=== PATIENT | female | born 1945 | race Caucasian/White ===

== ENCOUNTER 2016-12-01 11:16 | Emergency (ER) | payer MEDICARE ==
[~2016-12-01] VITALS: Ht 154.9 cm; Wt 78.0 kg
[~2016-12-01 11:16] MED LIST: ACCUNEB SOL3 ML/NE1 IN; ACCUNEB SOL3 ML/NEB INH; ADULT LOW DOSE81 MG PO; COREG12.5 M1 PO; COREG12.5 MG PO; EFFIENT10 M2 PO; LANTUS INS100 UNITS/ SC; LASIX 40MG. TAB40 MG PO; LASIX20 MG PO; LISINOPRIL 20MG20 MG PO; METFORMIN HCL1000 MG PO; METFORMIN1000 MG PO; METOLAZONE 2.52.5 MG PO; NICOTINE21 MG/24 H TD; NOVOLIN 70/30 710 ML SC; OMEPRAZOLE20 MG PO; PERCOCET 500 MG1 TAB PO; PLAVIX 75MG TAB75 MG PO; POTASSIUM CHLO20 ME2 PO; PRILOSEC20 M1 PO; PROAIR HFA0.09 MG/AC IH; VALACYCLOVIR HCL1 G1 PO; ZITHROMAX Z-PA250 M2 PO
[2016-12-01 11:43] LABS: HEMOGLOBIN 11.6 g/dL (12.2-16.2); LYMPH # 1.3 K/mm3 (0.7-4.5); LYMPH % 11.1 % (10-50.0)
--- NOTE | 2016-12-01 11:46 | Emergency Room Report ---
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 N Clinical Suspician of Infection? N Mental Status: 1 - Regular (Normal Baseline) Sepsis Risk:Low Sepsis Risk Have you (or family members/close friends) recently traveled outside the [place]? N If Yes, where/when: Have you had exposure to infectious disease within the past month? TB? Other? Specify: Surgery 1 years old white female with history of coronary artery disease hypertension and diabetes who ran out of medicine a week ago. He has been experiencing shortness over a year since 4:00 AM associated with chest pressure and cough. She describes her chest pain as sharp and worse with deep breath this and the cough is productive of white material. He denies having palpitations nausea vomiting. She was found to have elevated blood pressure in the ER. Source patient, RN notes reviewed, family Exam Limitations no limitations ALLERGIES Coded Allergies: Penicillins (Intermediate, WHIVES 12/01/16) Home Medications Active Scripts LISINOPRIL (Lisinopril) 20 MG PO DAILY #30 TAB Prov: 12/13/14 Carvedilol (Coreg) 12.5 MG PO BID #60 TAB Prov: 12/13/14 VALACYCLOVIR HCL (Valacyclovir) 1 GM PO Q8 #21 TAB Prov: 05/21/16 Carvedilol (Coreg) 12.5 MG PO BID #28 TAB Prov: 04/16/16 Furosemide (Lasix 40MG) 40 MG PO DAILY #14 TAB Prov: 04/16/16 ALBUTEROL SULFATE (Accuneb) 1.25 MG INH Q6HP PRN soa #30 NEB Prov: 04/16/16 CLOPIDOGREL BISULFATE (PLAVIX) 75 MG PO DAILY #14 TABLET Prov: 04/16/16 Reported Medications Metolazone (Metolazone 2.5MG) 5 MG PO MoTh INSULIN NPH HUM/REG INSULIN HM (Novolin 70-30 100 Unit/Ml Vial) 50 UNITS SC BIDD POTASSIUM CHL (Potassium Chloride) 20 MEQ PO BID OMEPRAZOLE MAGNESIUM (Prilosec 20MG) 20 MG PO DAILY Albuterol Sulfate (Proair Hfa) 1 PUFF IH Q6HP PRN SOA METFORMIN HCL (Metformin 1000MG) 1,000 MG PO BID #60 Prasugrel HCl (Effient) 10 MG PO DAILY History Medical History General CAD? No Angina: Yes VA: No Hypertension? Yes Hyperlipidemia? Yes CHF? Yes DVT? No PE? No COPD? Yes Asthma? Yes Anemia? No GERD? No Gastric ulcers? No GI Bleed? No Hernia? Yes Thyroid Problems? No Hypothyroidism? No CVA? No Seizures? No Diabetes? Yes Insulin Dependent: Yes Insulin Pump: No Home FSBS? Yes Renal Insuffiency? No End Stage Renal Disease? No UTI? No Stones? No BPH? No GB Disease: Yes Nephritic Syndrome? No Asplenia? No Hepatitis? No Sickle Cell Disease? No Arthritis? Yes Migraines? Yes Cataracts? Yes Glaucoma? No MRSA? No HIV? No TB? No Anxiety? No Depression? 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 No Immunization Hx Ped.Immunizations UTD Yes DT/Tetanus NOT SURE Flu 12/13/14 Pneumonia 12/12/2014 Surgical Hx Previous Surgery?Y CHOLECYSTECTOMY HYSTERECTOMY CARDIAC STENTS Family History Family Hx Diabetes Yes CAD No Hypertension Yes Hyperlipidemia Yes Cancer Yes TB No Social History Smoking Hx Smoker: Former Smoker Tobacco: No Type Cigarettes Packs/day < 1 Pack Alcohol Alcohol: No Review of Systems All Other Systems Reviewed and Negative Constitutional no symptoms reported Eyes no symptoms reported ENT no symptoms reported. Respiratory see HPI, cough, shortness of breath Cardiovascular see HPI, chest pain Gastrointestinal no symptoms reported Genitourinary no symptoms reported. Musculoskeletal no symptoms reported Skin no symptoms reported Psychiatric/Neurological no symptoms reported Physical Exam Vital Signs Vital Signs Date Time Temp Pulse Resp B/P Pulse O2 O2 Flow FiO2 Ox Delivery Rate 12/01 1339 85 18 146/78 99 12/01 1120 87 18 94 - WBC >12,000 or <4,000 or 10% bands? 2 or more SIRS Criteria Met? B/P: MAP: Creatinine >2.0? UA output<0.5ml/kg/hr for 2 hrs? Platelet count >100,000? Lactate >2.0mmol/1? INR >1.2 or PTT > than 60 sec? Evidence of Organ Dysfunction? Provider documented clinical suspician of infection? N Sepsis Criteria Count: 0 Sepsis Risk: Low Sepsis Risk General Appearance normal appearance, WD/WN Eye Exam - bilateral eye normal exam, bilateral eye PERRL, bilateral eye EOMI Ear, Nose, Throat hearing grossly normal, normal ENT inspection Neck normal inspection, non-tender, supple, full range of motion Respiratory Status Yes: trachea midline, chest symmetrical, non tender chest. No: respiratory distress. Lung Sounds bilateral: decreased breath sounds (mildly diminished breath sound). 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 No Results/Orders Laboratory Tests 12/01/16 1305: Troponin I 0.03 12/01/16 1133: Lactic Acid 2.7 H 12/01/16 1130: Sodium 137, Potassium 3.3 L, Chloride 98, Carbon Dioxide 35 H, BUN 19 H, Creatinine 1.2 H, Estimated Creat Clear 51, Estimated GFR (MDRD) 44 L, Glucose 251 H, Calcium 8.2 L, Total Bilirubin 0.5, AST 11 L, ALT 12, Alkaline Phosphatase 150 H, Creatine Kinase 102, CK-MB (CK-2) Rel Index 0.5, CK and CKMB Interp < 0.5, Troponin I 0.03, B-Natriuretic Peptide 157 H, Total Protein 7.4, Albumin 3.1 L, Globulin 4.3 H, Albumin/Globulin Ratio 0.7 L, WBC 11.3 H, RBC 4.94, Hgb 11.6 L, Hct 39.0, MCV 79.0 L, RDW 15.4, Plt Count 606 H, MPV 7.8, Gran % 81.4 H, Gran # 9.2 H, Lymphocytes % 11.1, Monocytes % 4.9, Eosinophils % 2.0, Basophils % 0.6, Lymphocytes # 1.3, Monocytes # 0.6, Eosinophils # 0.2, Basophils # 0.1, PUBS MCHC 29.7 L, MCH 23.4 L Current Medication Orders Sig/Ida Start time Last Medication Dose Route Stop Time Status Admin Albuterol/Ipratropium 0 .STK-MED ONE 12/01 1242 DC INH Levofloxacin/Dextrose 150 ML .STK-MED ONE 12/01 1231 DC IV Sodium Chloride 500 ML .STK-MED ONE 12/01 1231 DC IV Levofloxacin/Dextrose 150 ML ONCE ONE 12/01 1230 CKDr 12/01 IV 12/01 1359 1234 Potassium Chloride 20 MEQ ONCE ONE 12/01 1230 DC PO 12/01 1231 Sodium Chloride 500 ML .Q1H 12/01 1230 AC 12/01 IV 1234 Sodium Chloride 10 ML PRN PRN 12/01 1230 AC IV 12/02 1225 Albuterol/Ipratropium 3 ML ONCE ONE 12/01 1215 DC 12/01 INH 12/01 1216 1244 Sodium Chloride 10 ML PRN PRN 12/01 1130 AC IV 12/02 1127 Lisinopril 20 MG DAILY-DM 12/01 1129 AC 12/01 PO 1136 Carvedilol 25 MG BID 12/01 1128 AC 12/01 PO 1135 Orders Procedure Date/time Status TROPONIN I 12/01 1300 Complete URINALYSIS/COMPLETE 12/01 1226 Active LACTIC ACID FOLLOW UP 12/01 1215 Active RT REQUEST DUONEB 12/01 1202 Active CULTURE, SPUTUM 12/01 1202 Active CULTURE, BLOOD 12/01 1159 Active LACTIC ACID 12/01 1159 Complete ELECTROCARDIOGRAM REQUEST 12/01 1130 Active CHEST(2 VIEWS-NOT PORTABLE) 12/01 1130 Active IV SALINE LOCK 12/01 1130 Active CBC WITH AUTO DIFF 12/01 1130 Complete CARDIAC ENZYMES 12/01 1130 Complete CHEM 12 PROFILE 12/01 1130 Complete BRAIN NATRIURETIC PEPTIDE 12/01 1130 Complete CM/EKG CM/EKG Comments Normal sinus rhythm 89/m with progression and no acute finding Departure Departure Time of Disposition 1302 Disposition DC Home or Self Care(routine) Clinical Impression Primary Impression: Hypertension Secondary Impressions: Bronchitis, Diabetes, Non compliance with medical treatment Condition STABLE Referrals LENORE PLASCENCIA APRN Additional Instructions After the patient took her blood pressure medicine and received a breathing treatment she felt better her Bp became 161/83 mmhg with resolutin of her chest pressure. Her second cardiac enzymes came back negative. we discussed the need to reume her BP and cholestrol medicatins and she agreed. I gave her a refill on her blood pressure medicine and potassium, in addition to an antibiotic prescription. Is to follow-up with her primary care physician in the morning for blood pressure check and medication refills. He is to return of symptoms and returns or worsens. Dr. Ivey Discharge Counseling Counseled pt/family regarding diagnosis, test results, medications/RX, home care, follow up needs Prescriptions Current Visit Scripts LISINOPRIL (Lisinopril) 20 MG PO DAILY #15 TAB Ref 1 Carvedilol (Coreg) 25 MG PO Q12 #30 TAB Ref 1 Atorvastatin Calcium (Atorvastatin) 40 MG PO DAILY #15 TAB Ref 1 POTASSIUM BICARBONATE/CIT AC (Potassium 25 Meq Tablet Eff) 25 MEQ PO DAILY #7 TEF Levofloxacin (Levaquin) 250 MG PO DAILY #7 TAB ED Critical Care Critical Care No If Critical Care minutes are documented, the time involved in the performance of seperately reportable procedures was not counted toward critical care time documented. I directly delivered medical care to this critically ill and/or injured patient. Timely evaluation and treatment was necessary to address the significant organ system(s) dysfunction present in this patient. at 1342
[2016-12-01 12:08] LABS: BUN 19 mg/dL (7-18)
[2016-12-01 12:09] LABS: GFR (ESTIMATED) 44 ML/MIN (59-)
[2016-12-01] MEDS ORDERED: COREG25 M1 PO (13:02)
[2016-12-01] MEDS ORDERED: LIPITOR40 MG PO (13:02)
[2016-12-01] MEDS ORDERED: LISINOPRIL 20MG20 MG PO (13:02)
[2016-12-01] MEDS ORDERED: K-VESCENT25 MEQ PO (13:06)
[2016-12-01] MEDS ORDERED: LEVAQUIN250 M1 PO (13:06)
[2016-12-01 13:39] VITALS: BP 146/78
--- NOTE | 2016-12-01 14:07 | RADIOLOGY REPORT PS360 ---
CHEST(2 VIEWS-NOT PORTABLE) HISTORY: Shortness of air SOA ORDERING PHYSICIAN: Garfield Ivey MD COMPARISON: 04/16/2016 FINDINGS: There is mild cardiomegaly with mild pulmonary venous congestion. No lobar consolidation or collapse. Mild fibrotic changes are present in the left lung base. Degenerative changes thoracic spine. IMPRESSION: Cardiomegaly with mild CHF
== END 2016-12-01 13:45 | disposition home or self-care (01) ==
LOC: ER 11:16
PROVIDERS: Emergency Medicine
DX: J20.9 Acute bronchitis, unspecified (principal); I10 Essential (primary) hypertension; E11.65 Type 2 diabetes mellitus with hyperglycemia; Z79.4 Long term (current) use of insulin; Z88.0 Allergy status to penicillin; J44.9 Chronic obstructive pulmonary disease, unspecified; Z87.891 Personal history of nicotine dependence